=== PATIENT | male | born 1980 | race Caucasian/White ===

== ENCOUNTER 2017-10-30 14:56 | Emergency (ER) | payer OTHER ==
[2017-10-30 15:05] VITALS: BP 133/90
[2017-10-30] MEDS ORDERED: LIDOCAINE 1% INJ-PF (10 MG/ML) 30 ML SDV INJ ONE (15:44)
--- NOTE | 2017-10-30 15:49 | ER Document Report ---
ED General - General Chief Complaint: Laceration Stated Complaint: FINGER LACERATION Time Seen by Provider: 10/30/17 15:40 Notes: Patient presents with concern for finger laceration of his left hand. Patient was at work and cut himself on sharp object while working inside of the car. 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 He sustained a laceration to lateral aspect of fifth digit. Patient is right-hand dominant. Last tetanus approximately 4 years ago. Denies any medical problems or allergies and does not take any medications on a daily basis. TRAVEL OUTSIDE OF THE [place] IN LAST 30 DAYS: No - Related Data Allergies/Adverse Reactions: No Known Allergies Allergy (Verified 10/30/17 14:57) Past Medical History - Social History Smoking Status: Unknown if Ever Smoked Family History: None - Immunizations Hx Diphtheria, Pertussis, Tetanus Vaccination: Yes Review of Systems - Review of Systems Constitutional: No symptoms reported EENT: No symptoms reported Cardiovascular: No symptoms reported Respiratory: No symptoms reported Gastrointestinal: No symptoms reported Genitourinary: No symptoms reported Male Genitourinary: No symptoms reported Musculoskeletal: See HPI Skin: No symptoms reported Hematologic/Lymphatic: No symptoms reported Neurological/Psychological: No symptoms reported Physical Exam - Vital signs Vitals: Temp Pulse Resp BP Pulse Ox 98.6 F 93 18 133/90 H 97 10/30/17 15:02 10/30/17 15:02 10/30/17 15:02 10/30/17 15:02 10/30/17 15:02 - General General appearance: Appears well, Alert - HEENT Head: Normocephalic, Atraumatic - Respiratory Respiratory status: No respiratory distress - Extremities Hand: Other - Approximate 3 cm full-thickness laceration lateral aspect of fifth digit of left hand. Sensation and motor grossly intact. No visible tendon or arterial injury. - Neurological Cognition: Normal Orientation: AAOx4 - Sensation and pinprick intact fifth digit left hand Course - Re-evaluation Re-evalutation: 10/30/17 17:03 Last tetanus shot approximately 3-4 years ago. No complications with laceration repair. 6 stitches placed. Return precautions provided regarding infection. Patient had minor swelling from incident unable to fully flex his DIP of fifth digit of left hand. Laceration was not in distribution of tendon however I told patient if he continues to have lack of range of motion after swelling subsides to follow-up with hand surgeon referred him to. - Vital Signs Vital signs: Temp Pulse Resp BP Pulse Ox 98.6 F 93 18 133/90 H 97 10/30/17 15:02 10/30/17 15:02 10/30/17 15:02 10/30/17 15:02 10/30/17 15:02 Procedures - Laceration/Wound Repair Left 5th digit Wound length (cm): 3 Wound's Depth, Shape: Linear Laceration pre-procedure: Shur-Clens applied, Other - NS flush Anesthetic type: 1% Lidocaine Volume Anesthetic (mLs): 8 Wound explored: Clean, No foreign body removed Irrigated w/ Saline (mLs): 20 Wound Repaired With: Sutures Suture Size/Type: 4:0, Prolene Post-procedure NV exam normal: Yes Complications: No Discharge - Discharge Clinical Impression: Laceration of finger Qualifiers: Encounter type: initial encounter Finger: little finger Damage to nail status: without damage Foreign body presence: without foreign body Laterality: left Qualified Code(s): S61.217A - Laceration without foreign body of left little finger without damage to nail, initial encounter Condition: Good Disposition: HOME, SELF-CARE Instructions: Laceration Care (OM) Additional Instructions: Please follow-up with hand surgery referral provided today in the next week if range of motion of her finger is decreased even after soft tissue swelling subsides. Please follow-up in 14 days in the emergency department for suture removal or with your family doctor. Please take 800 mg of ibuprofen every 6-8 hours as needed for pain Referrals: PRO GAMBLE DO [ACTIVE STAFF] - Follow up as needed
== END 2017-10-30 17:16 | disposition home or self-care (01) ==
LOC: ER 14:56
DX: S61.217A Laceration without foreign body of left little finger without damage to nail, initial encounter (principal); W26.8XXA Contact with other sharp object(s), not elsewhere classified, initial encounter; Y93.89 Activity, other specified; Y92.810 Car as the place of occurrence of the external cause; Y99.0 Civilian activity done for income or pay
CPT/HCPCS: 99283; 12002; J3490